=== PATIENT | female | born 1955 | race Caucasian/White ===

== ENCOUNTER 2022-04-29 08:39 | Outpatient (CLI) | payer MEDICARE, BC, SELFPAY ==
--- NOTE | 2022-04-29 08:45 | MR_ITS ---
WS: [id number] MRI NECK WITH CONTRAST TECHNIQUE: Noncontrast axial T1, axial T2 FSE fat sat, coronal T2 fat sat, coronal T1, coronal T1 fat sat, sagittal T2 fat sat, plus contrast enhanced coronal, sagittal, and axial T1 fat sat images obta ined. CLINICAL INFORMATION: ATYPICAL FACIAL PAIN COMPARISON: None. FINDINGS: No evidence of restricted diffusion to suggest acute ischemia. Ventricular system and basal cisterns are patent. Mild small vessel changes. Mild parenchymal volume loss. Normal posterior fossa. Normal v ascular flow voids at the skull base. No extra-axial fluid collections. No evidence of mass or mass e ffect. Paranasal sinuses are well aerated. Slight mucosal thickening RIGHT frontoethmoidal recess. Mastoid a ir cells are well aerated. Normal posterior nasopharynx. Temporal lobes and hippocampal formations ar e normal in appearance. Normal optic chiasm and pituitary infundibulum. Normal cavernous sinuses and Meckel's cave. Proximal 7th and 8th cranial nerves are normal in appearance. Normal trigeminal nerve root entry zones.No evidence of enhancing IAC or CP angle mass. No abnormal gadolinium enhancement. Normal visualized dural venous sinuses. MR/MR orbit face neck wo/w* [id number] IMPRESSION: 1. No evidence of enhancing IAC or CP angle mass. Normal trigeminal nerve root entry zones. 2. Mild mucosal thickening RIGHT frontal ethmoidal recess. Paranasal sinuses a re otherwise well aerated. Mastoid air cells well aerated. 3. Mild small vessel changes with mild parenchymal volume loss. 4. No restricted diffusion to suggest acute ischemia. 5. No abnormal intracranial enhancement. 6. No other significant findings.
[2022-04-29] MEDS: gadobenate dimeglumine 20 mL vial IV (10:01)
== END 2022-04-29 08:40 | disposition home or self-care (01) ==
LOC: RAD 08:41
PROVIDERS: Visit Provider Otolaryngology
DX: G50.1 Atypical facial pain (principal)
CPT/HCPCS: 70543